=== PATIENT | female | born 1955 | race Caucasian/White ===

== ENCOUNTER 2017-05-23 13:34 | Inpatient (IN) | payer BC ==
--- NOTE | 2017-05-23 17:13 | EDPHY ---
HPI/HX/ROS/PE/MDM Narrative: CHIEF COMPLAINT: Diarrhea, abdominal pain HISTORY OF PRESENT ILLNESS: The patient is a 61 y/o female with a history of cholecystectomy and a hernia surgery complaining of severe diarrhea and abdominal pain for 5 days. A colonoscopy performed several years ago did not reveal diverticulosis. 2 weeks ago she had diarrhea for 24 hours, but continued to feel vague abdominal upset since that time. 5 days ago the severe diarrhea returned accompanied by significant abdominal pain. Mucous is present in the diarrhea, but there is no blood. She has also felt more bloated and crampy than normal. Due to the abdominal pain she has had a decreased appetite and has only eaten frozen Gatorade for 5 days. The abdominal pain is aggravated when sitting up or taking a deep breath. No fever, chills, chest pain, shortness of breath, palpitations, vomiting, urinary complaints, headache, lightheadedness. REVIEW OF SYSTEMS: Aside from elements discussed in the HPI, a comprehensive 10-point review of systems was reviewed and is negative. PAST MEDICAL HISTORY: Cholecystectomy, hernia surgery, bilateral knee replacement SOCIAL HISTORY: at bedside, lives in [place], retired VITAL SIGNS: Reviewed by me GENERAL: Well-developed, well-nourished, resting comfortably in no respiratory distress. HEENT: Atraumatic. Eyes: No icterus, no injection. Mouth: dry mucous membranes. No erythema or lesions. Neck: supple with no adenopathy. LUNGS: Clear to auscultation bilaterally, no wheezes, rhonchi or rales. CARDIAC: Regular rate and rhythm, no rubs, murmurs or gallops. ABDOMEN: Diffuse tenderness to palpation, left and lower quadrants more pronounced. Soft, nondistended, bowel sounds normal. BACK: Mild left CVA tenderness. EXTREMITIES: No trauma. No edema. Range of motion is normal throughout. NEURO: Alert and oriented, grossly nonfocal. SKIN: Warm and dry, no rash. PSYCHIATRIC: Normal mentation, no agitation. Portions of this note were transcribed by a program medical director. I personally performed a history, physical exam, medical decision making, and confirmed accuracy of information the transcribed note. ED Course: The patient is a 61 y/o female with a history of cholecystectomy and a hernia surgery presenting with diarrhea and abdominal pain. On exam she has diffuse abdominal tenderness (left and lower quadrants more pronounced), and left CVA tenderness. Labs and abdominopelvic CT ordered. 75mcg IV Fentanyl and 4mg IV Zofran administered. 0: Patient's labs are normal, imaging still pending. 1954: Spoke with Dr. Flowers, radiologist, patient has moderate diverticulitis, no micro perforations or abscess. 2015: Reassessed patient and discussed imaging and laboratory findings. Patient continues to have significant abdominal discomfort. Her pain and anorexia as providing her from eating. She is not comfortable being discharged home with oral antibiotics. I think it is reasonable to admit the patient for IV hydration as well as IV antibiotics until her symptoms are beginning to improve. 1mg IV Dilaudid, 1gm IV Ceftriaxone, 500mL Flagyl, and 1L IV NS. 2025: Consulted with Dr. Randle, hospitalist, he accepts admission of this patient. 2127: Patient is feeling itchy but there is no rash, Flagyl has been stopped. Patient received Solu-Medrol. MDM: After obtaining the patient's history and performing an examination, differential diagnosis considered included but was not limited to gastroenteritis, colitis, diverticulitis, pancreatitis, Clostridium difficile, urinary tract infections and other causes. - Data Points Imaging Results: Imaging Impressions Abdomen CT 05/23/17 17:20 Impression: 1. Moderate diverticulitis in the left pelvis of the junction of the descending and sigmoid colon. 2. Other chronic findings, as above. Results called and given to the commercial assistant for Sofiya Christian MD, on 05/23/2017, 19:58. Imaging: Discussed imaging studies w/ director call Radiologist, I viewed and interpreted images myself Laboratory Results: Laboratory Results 05/23/17 18:36 05/23/17 18:36 05/23/17 05/23/17 18:36 18:36 WBC 7.60 10^3/uL 10^3/uL (3.80-9.50) RBC 4.30 10^6/uL 10^6/uL (4.18-5.33) Hgb 13.1 g/dL g/dL (12.6-16.3) Hct 38.4 % % (38.0-47.0) MCV 89.3 fL fL (81.5-99.8) MCH 30.5 pg pg (27.9-34.1) MCHC 34.1 g/dL g/dL (32.4-36.7) RDW 14.8 % % (11.5-15.2) Plt Count 273 10^3/uL 10^3/uL (150-400) MPV 9.7 fL fL (8.7-11.7) Neut % (Auto) 52.4 % % (39.3-74.2) Lymph % (Auto) 33.4 % % (15.0-45.0) Rolette % (Auto) 11.3 % % (4.5-13.0) Eos % (Auto) 1.8 % % (0.6-7.6) Baso % (Auto) 0.8 % % (0.3-1.7) Nucleat RBC Rel Count 0.0 % % (0.0-0.2) Absolute Neuts (auto) 3.98 10^3/uL 10^3/uL (1.70-6.50) Absolute Lymphs (auto) 2.54 10^3/uL 10^3/uL (1.00-3.00) Absolute Monos (auto) 0.86 10^3/uL H 10^3/uL (0.30-0.80) Absolute Eos (auto) 0.14 10^3/uL 10^3/uL (0.03-0.40) Absolute Basos (auto) 0.06 10^3/uL 10^3/uL (0.02-0.10) Absolute Nucleated RBC 0.00 10^3/uL 10^3/uL (0-0.01) Immature Gran % 0.3 % % (0.0-1.1) Immature Gran # 0.02 10^3/uL 10^3/uL (0.00-0.10) Sodium 144 mEq/L mEq/L (135-145) Potassium 4.0 mEq/L mEq/L (3.5-5.2) Chloride 109 mEq/L mEq/L (97-110) Carbon Dioxide 23 mEq/l mEq/l (22-31) Anion Gap 12 mEq/L mEq/L (8-16) BUN 20 mg/dL mg/dL (7-23) Creatinine 0.7 mg/dL mg/dL (0.6-1.0) Estimated GFR > 60 Glucose 85 mg/dL mg/dL (70-100) Calcium 9.3 mg/dL mg/dL (8.5-10.4) Total Bilirubin 0.6 mg/dL mg/dL (0.1-1.4) Conjugated Bilirubin 0.3 mg/dL mg/dL (0.0-0.5) Unconjugated Bilirubin 0.3 mg/dL mg/dL (0.0-1.1) AST 24 IU/L IU/L (14-46) ALT 38 IU/L IU/L (9-52) Alkaline Phosphatase 53 IU/L IU/L (38-126) Total Protein 7.3 g/dL g/dL (6.3-8.2) Albumin 4.0 g/dL g/dL (3.5-5.0) Lipase 114 IU/L IU/L (23-300) Medications Given: Discontinued Medications Fentanyl (Sublimaze) 75 mcg IVP EDNOW ONE Stop: 05/23/17 17:22 Last Admin: 05/23/17 17:27 Dose: 100 mcg Hydromorphone HCl (Dilaudid) 1 mg IVP EDNOW ONE Stop: 05/23/17 20:27 Last Admin: 05/23/17 20:47 Dose: 1 mg Ceftriaxone Sodium/Dextrose (Rocephin 1 Gm (Premix)) 50 mls @ 100 mls/hr IV EDNOW ONE PRN Reason: Protocol Stop: 05/23/17 20:56 Last Admin: 05/23/17 20:45 Dose: 50 mls Metronidazole/Sodium Chloride (Flagyl 500 Mg (Premix)) 100 mls @ 100 mls/hr IV EDNOW ONE PRN Reason: Protocol Stop: 05/23/17 21:26 Last Admin: 05/23/17 20:47 Dose: 100 mls Sodium Chloride (Ns) 1,000 mls @ 0 mls/hr IV ONCE ONE; Wide Open PRN Reason: Protocol Stop: 05/23/17 20:29 Last Admin: 05/23/17 20:45 Dose: 1,000 mls Methylprednisolone Sodium Succinate (Solu-Medrol) 125 mg IVP EDNOW ONE Stop: 05/23/17 21:28 Last Admin: 05/23/17 21:43 Dose: 125 mg Ondansetron HCl (Zofran) 4 mg IVP EDNOW ONE Stop: 05/23/17 17:26 Last Admin: 05/23/17 17:27 Dose: 4 mg General Time Seen by Provider: 05/23/17 17:06 Initial Vital Signs: Initial Vital Signs Temperature (C) 36.8 C 05/23/17 14:02 Heart Rate 82 05/23/17 14:02 Respiratory Rate 17 05/23/17 14:02 Blood Pressure 132/91 H 05/23/17 14:02 O2 Sat (%) 93 05/23/17 14:02 O2 Delivery Mode Room Air Allergies/Adverse Reactions: metronidazole [From Flagyl] Allergy (Mild, Verified 05/23/17 22:23) Itching aripiprazole [From Abilify] Allergy (Verified 05/23/17 14:01) Home Medications: Medication Instructions Recorded Divalproex [Depakote 125 MG (RX)] 125 mg PO HS 09/20/15 Sertraline HCl [Zoloft 100mg (*)] 150 mg PO HS 09/20/15 Divalproex [Depakote] 500 mg PO HS 05/23/17 Herbals/Supplements -Info Only 1 ea PO DAILY 05/23/17 Lurasidone HCl [Latuda] 20 mg PO Q2D@22 05/23/17 Omeprazole 40 mg PO HS 05/23/17 Rosuvastatin Calcium [Crestor 10mg 10 mg PO HS 05/23/17 (RX)] clonazePAM [Klonopin (*)] 1 mg PO HS PRN 05/23/17 Departure - Departure Disposition: Home, Routine, Self-Care Clinical Impression: Diverticulitis Abdominal pain Qualifiers: Abdominal location: lower abdomen, unspecified Qualified Code(s): R10.30 - Lower abdominal pain, unspecified Diarrhea Qualifiers: Diarrhea type: unspecified type Qualified Code(s): R19.7 - Diarrhea, unspecified Condition: Good Report Scribed for: Sofiya Christian Report Scribed by: Annie Shukla Date of Report: 05/23/17 Time of Report: 17:10
[2017-05-23] MEDS ORDERED: fentaNYL 100 MCG/2 ML INJ IVP ONE (17:21)
[2017-05-23] MEDS ORDERED: ONDANSETRON 4 MG/2 ML VIAL ONE (17:22)
[2017-05-23] MEDS ORDERED: ONDANSETRON 4 MG/2 ML VIAL IVP ONE (17:25)
[2017-05-23 18:43] LABS: PLATELET COUNT 273 10^3/uL (150-400)
[2017-05-23] MEDS ORDERED: IOPAMIDOL (ISOVUE-300) 100 ML BTL ONE (19:28)
[2017-05-23] MEDS ORDERED: HYDROmorphONE/DILAUDID 2 MG/ML INJ IVP ONE (20:26)
[2017-05-23] MEDS ORDERED: NS 1,000 ML IV ONE (20:28)
[2017-05-23] MEDS ORDERED: ACETAMINOPHEN 325 MG TAB PO PRN (21:03)
[2017-05-23] MEDS ORDERED: ONDANSETRON DISINTEGRATING 4 MG TAB PO PRN (21:03)
[2017-05-23] MEDS ORDERED: HYDROmorphone HCL/NS 0.5 MG/ML SYR IVP PRN (21:03)
[2017-05-23] MEDS ORDERED: oxyCODONE IR 5 MG TAB PO PRN (21:03)
[2017-05-23] MEDS ORDERED: methylPREDNISolone SOD SUCC 125 MG/2 ML VIAL IVP ONE (21:27)
--- NOTE | 2017-05-23 21:31 | GHP ---
[f rep st] HISTORY AND PHYSICAL DATE OF ADMISSION: 05/23/2017 CHIEF COMPLAINT: Abdominal pain and diarrhea. HISTORY OF PRESENT ILLNESS: A 61-year-old female who presents with about 5 days of significant abdom inal pain and diarrhea. She has had trouble eating in this time period. She has had some chills at home. She has not measured her temperature. She describes a tenderness in the left lower quadrant a s severe. She has had a colonoscopy about 4 years ago which she was told was normal. Her diarrhea h as been non bloody. PAST MEDICAL/SURGICAL HISTORY: 1. Ojeda's esophagus. 2. Bipolar type 2. 3. Hyperlipidemia. 4. Hernia operation and cholecystectomy in the distant past. 5. Bilateral TKA. MEDICATIONS: Please see medication reconciliation. ALLERGIES: Abilify. FAMILY HISTORY: Significant for hyperlipidemia. SOCIAL HISTORY: She just moved here from [place]. She lives with her . She very rarely d rinks. She does not smoke. REVIEW OF SYSTEMS: A 10-point review of systems is conducted and is negative except per History of P resent Illness. PHYSICAL EXAM: VITAL SIGNS: Blood pressure 132/86, heart rate 64, respiration rate 16, saturating 9 3% on room air. Temperature is 36.8. GENERAL: Patient is a pleasant female who is resting comforta ernestina, holding her upper abdomen. HEENT: Shows to be normocephalic, atraumatic. CARDIOVASCULAR: Beena ws a regular rate and rhythm. No murmurs, rubs, or gallops. PULMONARY: Lungs clear to auscultation bilaterally. ABDOMEN: Shows her to have a normal abdomen on inspection. She has normal bowel soun ds. She is very extremely tender to palpation in the left lower quadrant. There are no peritoneal s igns. SKIN: Shows no rash. : Exam shows no Gee. NEUROLOGIC: Exam shows her to be alert and o riented x3. She is moving all extremities. PSYCHIATRIC: Exam shows normal mood and affect. LABORATORY DATA: CBC is normal. Basic metabolic panel is normal. LFTs are normal. DATA: I discussed this with Dr. Christian. Will admit to med/surg. Abdominal CT scan shows moderate sigmoid diverticulitis. IMPRESSION AND PLAN: 1. Diverticulitis: No evidence of perforation at this time. She is quite tender to palpation. Adrien l treat her with Rocephin and Flagyl. If she decompensates at all, will have a low threshold to invo lve General Surgery. Giving her clear liquids. Will give her some IV fluids. 2. Bipolar type 2: Will continue her Depakote and Latuda. 3. Hyperlipidemia: Crestor. 4. Ojeda's: She is on omeprazole. 5. Venous thromboembolism risk is moderate. I will give her Lovenox. 6. Code Status: Will make her full code. /[id number]/MODL
[2017-05-23] MEDS ORDERED: LURASIDONE HCL 20 MG TAB PO SCH (22:00)
[2017-05-24] MEDS: NS 1,000 ML IV SCH ×3 (00:14→23:03)
[2017-05-24] MEDS: ROSUVASTATIN CALCIUM 10 MG TAB PO SCH ×2 (00:41→20:13)
[2017-05-24] MEDS: PANTOPRAZOLE SODIUM 40 MG TAB PO SCH ×2 (00:41→20:13)
[2017-05-24] MEDS: DIVALPROEX NA 125 MG TAB PO SCH ×2 (00:41→20:13)
[2017-05-24] MEDS: DIVALPROEX NA 500 MG TAB PO SCH ×2 (00:41→20:13)
[2017-05-24] MEDS: clonazePAM 1 MG TAB PO PRN ×2 (00:44→20:20)
[2017-05-24] MEDS ORDERED: SERTRALINE HCL 100 MG TAB PO SCH ×2 (01:05→21:00)
--- NOTE | 2017-05-24 01:05 | HOSPPROG ---
Hospitalist Progress Note Assessment/Plan: XC: Patient had allergic reaction (severe, diffuse itching) to Flagyl. Will d/c CTX/Flagyl and change to Invanz for treatment of diverticulitis. Objective: Vital Signs Temp Pulse Resp BP Pulse Ox 36.9 C 72 18 157/72 H 94 05/24/17 00:36 05/24/17 00:36 05/24/17 00:36 05/24/17 00:36 05/24/17 00:36 ICD10 Worksheet Patient Problems: Problems Problem Status Onset Diverticulitis Acute
[2017-05-24 05:18] LABS: PLATELET COUNT 295 10^3/uL (150-400)
[2017-05-24] MEDS ORDERED: SUMAtriptan 5 MG/SPRAY SPRAY NS ONE (06:19)
[2017-05-24] MEDS: ONDANSETRON 4 MG/2 ML VIAL IVP PRN (09:20)
[2017-05-24] MEDS: ERTAPENEM 1 GM VIAL IV SCH (10:20)
[2017-05-24] MEDS: ENOXAPARIN 40 MG/0.4 ML SYR SC SCH (10:22)
--- NOTE | 2017-05-24 14:23 | HOSPPROG ---
Hospitalist Progress Note Assessment/Plan: 61 yo F admitted with desc and sigmoid colon diverticulitis # acute uncomplicated diverticulitis: of descending and sigmoid colon on peronal evaluation of abdominal CT. STarted on ctx/flagyl but allergic response to flagyl and now on invanz. Pain slightly improved but still not tolerating diet. Will likely advance diet in am and transition to oral abx # bioplar 2: at baseline, continue depakote, latuda # HLD: continue crestor #Barretts esophagus: PPI # IP status Patient new to my care. Old records reviwed and summarized as above. Care planr eviewed with pateints at bedside. Subjective: continued abdominal pain, no appetitie, tolerating minimal clears Objective: Vital Signs Temp Pulse Resp BP Pulse Ox 36.6 C 55 L 16 106/73 92 05/24/17 11:19 05/24/17 11:19 05/24/17 11:19 05/24/17 11:19 05/24/17 11:19 Laboratory Results 05/24/17 04:46 05/24/17 04:46 05/23/17 05/24/17 05/25/17 05:59 05:59 05:59 Intake Total 200 573 Balance 200 573 awake alert uncomfortable anicteric op clear rrr no mrg cta b soft dec bs no cce warm dry well perfused oriented approprate - Time Spent With Patient Time Spent with Patient: greater than 35 minutes Time Spent with Patient: Greater than 35 minutes spent on this patients care, greater than 50% of time spent counseling, educating, and coordinating care regarding the above mentioned plan. ICD10 Worksheet Patient Problems: Problems Problem Status Onset Diverticulitis Acute Abdominal pain Acute Diarrhea Acute
[2017-05-25 07:35] VITALS: O2SAT 92
[2017-05-25] MEDS: ERTAPENEM 1 GM VIAL IV SCH (09:02)
[2017-05-25] MEDS: ENOXAPARIN 40 MG/0.4 ML SYR SC SCH (09:02)
[2017-05-25] MEDS: ONDANSETRON 4 MG/2 ML VIAL IVP PRN (09:08)
--- NOTE | 2017-05-25 09:13 | PDMN ---
Medical Necessity Medical necessity: M150 diverticulitis- acute A-2 days : persistent abd pain., allergic rxn to flagyl now on Invanz, not tolerating diet, ongoing med nec care > 2 midnights, IV abx, pain, antiemetics, fluids
--- NOTE | 2017-05-25 12:12 | ASMTCASEMG ---
Living Arrangements What is your living Answers: With Spouse arrangement? Who do you live with? Type Of Residence What kind of residence do Answers: House you live in? Discharge Plan Comments Coordination Status Comments Notes: Patient is a 61yo female who comes to [facility] ED after 5 days of significant abdominal pain and diarrhea. Patient was admitted for observation of diverticulitis. Patient has a hx of Bipolar Type 2, Hyperlipidemia, and Ojeda's. No therapies have been ordered currently. Patient lives in [place] with her . Patient has been made inpatient status as of this morning. D/C plan TBD. CM will follow. Date Signed: 05/25/2017 12:11 PM Electronically Signed By:Arabella Hastings LCSW
[2017-05-25] MEDS ORDERED: AMOXICILLIN/CLAVULANATE POT 875/125 MG TAB PO SCH ×2 (12:45→21:00)
--- NOTE | 2017-05-25 12:47 | HOSPPROG ---
Hospitalist Progress Note Assessment/Plan: 61 yo F admitted with desc and sigmoid colon diverticulitis # acute uncomplicated diverticulitis: of descending and sigmoid colon on peronal evaluation of abdominal CT. STarted on ctx/flagyl but allergic response to flagyl and transitioned to invanz. Today she is tolerating some PO, but still not ready to advance diet. Will transition to augmentin given flagyl allergy and plan to complete a full course of abx. # bioplar 2: at baseline, continue depakote, latuda # HLD: continue crestor #Barretts esophagus: PPI # IP status Patient new to my care. Old records reviewed and summarized as above. Care plan reviewed with patients at bedside. Subjective: no significant overnight events, patient feeling a bit better but still not tolerating diet and still with significant pain Objective: Vital Signs Temp Pulse Resp BP Pulse Ox 36.7 C 74 16 121/98 H 92 05/25/17 07:31 05/25/17 07:31 05/25/17 07:31 05/25/17 07:31 05/25/17 07:31 05/24/17 05/25/17 05/26/17 05:59 05:59 05:59 Intake Total 600 Balance 600 awake alert uncomfortable anicteric op clear rrr no mrg cta b soft dec bs no cce warm dry well perfused oriented approprate - Time Spent With Patient Time Spent with Patient: greater than 35 minutes Time Spent with Patient: Greater than 35 minutes spent on this patients care, greater than 50% of time spent counseling, educating, and coordinating care regarding the above mentioned plan. ICD10 Worksheet Patient Problems: Problems Problem Status Onset Abdominal pain Acute Diarrhea Acute Diverticulitis Acute
[2017-05-25 15:57] VITALS: BP 142/74; PULSE 67; RESP 18; TEMP 98.2
--- NOTE | 2017-05-25 17:52 | PDDCSUM ---
Discharge Summary Discharge Summary: Dates of service 05/23-05/25/17 Consultations: none Procedures: abd ct Hospital course by problem: # acute uncomplicated diverticulitis: of descending and sigmoid colon on peronal evaluation of abdominal CT. STarted on ctx/flagyl but allergic response to flagyl and transitioned to invanz. Able to tolerate diet further by the end of the day, transitioned to augmentin for discharge. # bioplar 2: at baseline, continue depakote, latuda # HLD: continue crestor #Barretts esophagus: PPI # IP status DC home f/u wit PCP > 35 min spent in dc of patient more than half in coordination of care
== END 2017-05-25 18:41 | disposition home or self-care (01) | DRG 392 ==
LOC: F3E 23:00 → OBSVTOIN 05-24 21:15
PROVIDERS: ADMIT Student in an Organized Health Care Education/Training Program; ATTEND Internal Medicine
DX: K57.32 Diverticulitis of large intestine without perforation or abscess without bleeding (principal); T37.3X5A Adverse effect of other antiprotozoal drugs, initial encounter; L29.8 Other pruritus; F31.81 Bipolar II disorder; E78.5 Hyperlipidemia, unspecified; K22.70 Barrett's esophagus without dysplasia; Z90.49 Acquired absence of other specified parts of digestive tract; Z96.653 Presence of artificial knee joint, bilateral
CPT/HCPCS: 96374; G0378; J0696; J1170; J1335; J1650; J2405; J2930; J3010; Q9967

== ENCOUNTER 2018-01-25 12:50 | Inpatient (IN) | payer BC ==
[2018-01-25] MEDS ORDERED: IOPAMIDOL (ISOVUE-300) 100 ML BTL ONE (13:16)
[2018-01-25] MEDS ORDERED: HYDROmorphONE/DILAUDID 1 MG/ML INJ IVP PRN (16:58)
[2018-01-25] MEDS: HYDROmorphONE/DILAUDID 2 MG/ML INJ IVP PRN ×2 (17:29→20:51)
[2018-01-25] MEDS: ONDANSETRON 4 MG/2 ML VIAL IVP PRN (17:34)
--- NOTE | 2018-01-25 17:35 | GHP ---
DATE OF ADMISSION: 01/25/2018 CHIEF COMPLAINT: Abdominal pain. HISTORY OF PRESENT ILLNESS: The patient is a 62-year-old female with her third recurrence of diverticulitis of the sigmoid colon that started approximately 2-1 /2 weeks ago. In the past, she has been treated with oral or iv antibiotics. Currently, the patient complains of left lower quadrant pain. She saw her PCP, Dr. Hussein, last week who placed her on oral antibiotics. Her pain has continued to get worse and she is now febrile. She had a CT abdomen and pelvis today that revealed extensive sigmoid diverticulitis with a 2 cm submucosal abscess within the proximal sigmoid colon at the site of prior acute diverticulitis. The patient reports that her abdomen constantly feels full as if she has had a large meal. She does not have much of an appetite. She is having diarrhea. She denies nausea and vomiting. PAST MEDICAL HISTORY: Ojeda esophagus, bipolar disorder with depression, diverticulitis, hyperlipidemia, insomnia, migraine, chronic lymphocytic leukemia. PAST SURGICAL HISTORY: Bilateral total knee arthroplasties, as well as hernia repair and cholecystectomy 20 years ago. MEDICATIONS: Augmentin 875/125 mg, Crestor 40 mg, Depakote 125 mg, Excedrin Migraine as needed, Klonopin 0.5 mg, Prilosec 40 mg, Ultram 50 mg, Zoloft 100 mg. ALLERGIES: Flagyl and Abilify. FAMILY MEDICAL HISTORY: Cardiovascular disease. SOCIAL HISTORY: Patient is a nonsmoker. REVIEW OF SYSTEMS: A 10-point review of systems performed is negative, aside from what is in the HPI. PHYSICAL EXAM: GENERAL: This is a 62-year-old female who is somewhat ill- appearing, but in no acute distress, resting on exam table. HEENT: Pupils equal and round. No scleral icterus. Head: Normocephalic, atraumatic. No gross hearing deficits. Mucous membranes are moist. CARDIAC: Regular rate and rhythm. No clicks, murmurs, or rubs. RESPIRATORY: Clear to auscultation bilaterally. No increased work of breathing. ABDOMEN: Soft, slightly distended, tender to palpation in the left lower quadrant. Hyperactive bowel sounds present. SKIN: Warm and dry. No rashes. No jaundice. MUSCULOSKELETAL : Moves all extremities equally. No peripheral edema. NEUROLOGIC: She is alert and oriented x4. PSYCHIATRIC: Appropriate mood and affect. ASSESSMENT/PLAN: This is a 62-year-old female with her third recurrent episode of diverticulitis. She now has an abscess in the proximal sigmoid colon. We plan to admit her for intravenous antibiotics, hydration, and bowel rest. We will see if she is a candidate for percutaneous drainage of the diverticular abscess. I did discuss with the patient that she may need surgery to have this diseased portion of her colon out. If this has to happen more urgently should the antibiotics not decrease the abscess, she will need a temporary colostomy. Hopefully, the intravenous antibiotics will treat the abscess and we will plan for sigmoid colectomy down the road as an outpatient. We discussed all risks and options and patient wishes to move forward with this plan. Dr. Ross will see the patient later this evening. /[id number]/MODL MTDD
[2018-01-25] MEDS: ERTAPENEM 1 GM in NS 100 ML IV SCH (17:36)
[2018-01-25] MEDS: D5W 1/2 NS W/ 20 KCl/L 1,000 ML IV SCH (17:36)
[2018-01-25 17:45] LABS: PLATELET COUNT 213 10^3/uL (150-400)
[2018-01-25] MEDS: ACETAMINOPHEN 500 MG TAB PO PRN (23:48)
--- NOTE | 2018-01-26 00:27 | PDHOSCONS ---
History and Physical - Chief Complaint Abdominal pain - History of Present Illness 62 yo F w/ hx of diverticulitis, bipolar disorder, HLD, migraine, and per her report recently diagnosed CLL presents with recurrent diverticulitis. The patient was directly admitted to surgical service and the hospital medicine service was consulted for medication management. The patient presented to PCP with abdominal pain and was placed on oral Augmentin. CT scan revealed recurrent diverticulitis with small abscess so she was admitted here for management. She has been placed on IV Ertapenem by the surgical service. She is asking for her nighttime meds. Case discussed with surgeon Dr. Ross; records reviewed and summarized above. History Information - Allergies/Home Medication List Allergies/Adverse Reactions: metronidazole [From Flagyl] Allergy (Mild, Verified 05/23/17 22:23) Itching lamotrigine [From Lamictal] Allergy (Verified 01/25/18 18:47) Home Medications: Divalproex [Depakote] 125 mg PO HS 09/20/15 [Last Taken 01/24/18] Sertraline HCl [Zoloft 100mg (*)] 150 mg PO HS 09/20/15 [Last Taken 01/24/18] Divalproex [Depakote] 500 mg PO HS 05/23/17 [Last Taken 01/24/18] Lurasidone HCl [Latuda] 20 mg PO Q2D@22 05/23/17 [Last Taken 01/24/18] Omeprazole 40 mg PO HS 05/23/17 [Last Taken 01/24/18] clonazePAM [Klonopin (*)] 1 mg PO HS PRN 05/23/17 [Last Taken 01/24/18] Rosuvastatin Calcium [Crestor 20mg (*)] 20 mg PO HS 01/25/18 [Last Taken ] I have personally reviewed and updated: family history, medical history - Past Medical History migraines Additional medical history: Bipolar disorder. CLL. Recurrent diverticulitis - Surgical History Reports: cholecystectomy, hernia repair Additional surgical history: Bilateral TKAs - Family History Positive for: CAD - Social History Smoking Status: Never smoked Review of Systems Review of Systems: ROS: 10pt was reviewed & negative except for what was stated in HPI & below Physical Exam Physical Exam: Temp Pulse Resp BP Pulse Ox 36.9 C 75 16 107/56 L 96 01/25/18 19:31 01/25/18 19:31 01/25/18 19:44 01/25/18 19:31 01/25/18 19:44 O2 (L/minute) 2 Constitutional: obese, uncomfortable Eyes: PERRL, EOMI Ears, Nose, Mouth, Throat: moist mucous membranes, no oral mucosal ulcers Cardiovascular: regular rate and rhythym, no murmur, rub, or gallop Respiratory: no respiratory distress, clear to auscultation Gastrointestinal: normoactive bowel sounds, tenderness (LLQ), No guarding, No rebound, No distension Skin: warm, normal color Musculoskeletal: full muscle strength, no muscle tenderness Neurologic: AAOx3, CN II-XII Intact Psychiatric: interacting appropriately, not anxious Lab Data & Imaging Review 01/25/18 17:25 01/25/18 17:25 WBC 7.87 10^3/uL (3.80-9.50) 01/25/18 17:25 RBC 4.18 10^6/uL (4.18-5.33) 01/25/18 17:25 Hgb 12.4 g/dL (12.6-16.3) L 01/25/18 17:25 Hct 36.2 % (38.0-47.0) L 01/25/18 17:25 MCV 86.6 fL (81.5-99.8) 01/25/18 17:25 MCH 29.7 pg (27.9-34.1) 01/25/18 17:25 MCHC 34.3 g/dL (32.4-36.7) 01/25/18 17:25 RDW 14.8 % (11.5-15.2) 01/25/18 17:25 Plt Count 213 10^3/uL (150-400) 01/25/18 17:25 MPV 9.9 fL (8.7-11.7) 01/25/18 17:25 Neut % (Auto) Not Reported 01/25/18 17:25 Lymph % (Auto) Not Reported 01/25/18 17:25 [place] % (Auto) Not Reported 01/25/18 17:25 Eos % (Auto) Not Reported 01/25/18 17:25 Baso % (Auto) Not Reported 01/25/18 17:25 Nucleat RBC Rel Count Not Reported 01/25/18 17:25 Absolute Neuts (auto) Not Reported 01/25/18 17:25 Absolute Lymphs (auto) Not Reported 01/25/18 17:25 Absolute Monos (auto) Not Reported 01/25/18 17:25 Absolute Eos (auto) Not Reported 01/25/18 17:25 Absolute Basos (auto) Not Reported 01/25/18 17:25 Absolute Nucleated RBC Not Reported 01/25/18 17:25 Immature Gran % Not Reported 01/25/18 17:25 Seg Neutrophils % 12.0 % 01/25/18 17:25 Band Neutrophils % 2.0 % 01/25/18 17:25 Lymphocytes % 76.0 % 01/25/18 17:25 Monocytes % 9.0 % 01/25/18 17:25 Eosinophils % 1.0 % 01/25/18 17:25 Basophils % 0.0 % 01/25/18 17:25 Metamyelocytes % 0.0 % 01/25/18 17:25 Myelocytes % 0.0 % 01/25/18 17:25 Promyelocytes % 0.0 % 01/25/18 17:25 Blast Cells % 0.0 % 01/25/18 17:25 Immature Gran # Not Reported 01/25/18 17:25 Absolute Seg Neuts 0.94 10^3/uL (1.70-6.50) L 01/25/18 17:25 Absolute Band Neuts 0.16 10^3/uL (0.00-0.70) 01/25/18 17:25 Absolute Lymphocytes 5.98 10^3/uL (1.00-3.00) H 01/25/18 17:25 Absolute Monocytes 0.71 10^3/uL (0.30-0.80) 01/25/18 17:25 Absolute Eosinophils 0.08 10^3/uL (0.03-0.40) 01/25/18 17:25 Absolute Basophils 0.00 10^3/uL (0.02-0.10) L 01/25/18 17:25 Absolute Metamyelocyte 0.00 10^3/mL (0.00-0.00) 01/25/18 17:25 Absolute Myelocytes 0.00 10^3/mL (0.00-0.00) 01/25/18 17:25 Absolute Promyelocytes 0.00 10^3/uL (0.00-0.00) 01/25/18 17:25 Absolute Plasma Cells 0.00 10^3/uL (0.00-0.00) 01/25/18 17:25 Atypical Lymphocytes 2+ H 01/25/18 17:25 Absolute Blast Cells 0.00 10^3/uL (0.00-0.00) 01/25/18 17:25 Plasma Cells % 0.0 % 01/25/18 17:25 Platelet Estimate ADEQUATE (ADEQ) 01/25/18 17:25 Sodium 136 mEq/L (135-145) 01/25/18 17:25 Potassium 3.7 mEq/L (3.3-5.0) 01/25/18 17:25 Chloride 102 mEq/L (97-110) 01/25/18 17:25 Carbon Dioxide 24 mEq/l (22-31) 01/25/18 17:25 Anion Gap 10 mEq/L (6-14) 01/25/18 17:25 BUN 11 mg/dL (7-23) 01/25/18 17:25 Creatinine 0.7 mg/dL (0.6-1.0) 01/25/18 17:25 Estimated GFR > 60 01/25/18 17:25 Glucose 97 mg/dL (70-100) 01/25/18 17:25 Calcium 9.1 mg/dL (8.5-10.4) 01/25/18 17:25 Total Bilirubin 0.5 mg/dL (0.1-1.4) 01/25/18 17:25 AST 44 IU/L (14-46) 01/25/18 17:25 ALT 45 IU/L (9-52) 01/25/18 17:25 Alkaline Phosphatase 62 IU/L (38-126) 01/25/18 17:25 Total Protein 7.3 g/dL (6.3-8.2) 01/25/18 17:25 Albumin 3.9 g/dL (3.5-5.0) 01/25/18 17:25 Imaging Review: Imaging Impressions Abdomen CT 01/25/18 12:55 Impression: Extensive sigmoid diverticulosis, with a 2.0-cm submucosal abscess within the proximal sigmoid colon at the site of prior acute diverticulitis. Results called to Dr. Micah Hussein at 3:25 p.m. Assessment & Plan Assessment: 62 yo F presents with recurrent diverticulitis. Plan: 1. Complicated diverticulitis, recurrent - CT scan (personally reviewed/ interpreted) reveals 2 cm abscess. The patient is tender in the LLQ but her abdominal exam is overall reassuring. She is currently not displaying sepsis physiology. - Surgical service managing - On Ertapenem IV 2. Bipolar disorder - Will continue home Depakote, Zoloft, and Latuda q2d. 3. HLD - Continue statin 4. Migraines - Will manage with APAP 1 g PRN for now. Thank you for this consult, the hospital medicine service will follow along with you.
[2018-01-26] MEDS: ROSUVASTATIN CALCIUM 20 MG TAB PO SCH ×2 (00:40→21:55)
[2018-01-26] MEDS: ONDANSETRON 4 MG/2 ML VIAL IVP PRN ×2 (00:40→15:57)
[2018-01-26] MEDS: DIVALPROEX NA 500 MG TAB PO SCH ×2 (00:40→20:51)
[2018-01-26] MEDS: DIVALPROEX NA 125 MG TAB PO SCH ×2 (00:40→20:50)
[2018-01-26] MEDS: SERTRALINE HCL 100 MG TAB PO SCH ×2 (00:41→21:55)
[2018-01-26] MEDS: clonazePAM 0.5 MG TAB PO PRN ×2 (00:41→21:55)
[2018-01-26] MEDS ORDERED: PROMETHAZINE HCL 25 MG/ML INJ IVP PRN (01:15)
[2018-01-26] MEDS: D5W 1/2 NS W/ 20 KCl/L 1,000 ML IV SCH ×2 (04:21→15:59)
--- NOTE | 2018-01-26 06:03 | PDMN ---
Medical Necessity Medical necessity: Pt meets inpt criteria per MD order and MCG M-150, Diverticulitis, Acute, A-2 days. 62 y/o w/hx recurrent diverticulitis presenting w/LLQ pain and abd distension. Imaging shows extensive sigmoid diverticuitis now w/2 cm submucosal abscess in proximal sigmoid colon. IV ABX's , hydration, bowel rest, IV Dilaudid for pain, possible percutaneous drainage of abscess or surgery. Est LOS>2MN for ongoing eval/management of above.
[2018-01-26] MEDS: ACETAMINOPHEN 500 MG TAB PO PRN (06:16)
--- NOTE | 2018-01-26 09:28 | SOAPPROG ---
SOAP Progress Note Assessment/Plan: Assessment/Plan: 62 Y F diverticulitis c submucosal abscess. Seen with Dr. Ross and RN. Pain improved. Afebrile. WBCs normal (on admit). Continue IV abx. Ok to start clears--patient told to go slow with this. If continues to improve could avoid urgent surgery. Would still recommend eventual sigmoid colectomy. Dispo: pending course. S: less pain. no diarrhea. no fever, chills. O: alert, nad, smiling no wob abd soft, +llq tenderness 01/26/18 09:25 Objective: Vital Signs Temp Pulse Resp BP Pulse Ox 36.6 C 91 18 130/76 H 95 01/26/18 04:30 01/26/18 04:30 01/26/18 04:30 01/26/18 04:30 01/26/18 04:30 Laboratory Results 01/25/18 17:25 01/25/18 17:25 01/25/18 01/26/18 01/27/18 05:59 05:59 05:59 Intake Total 150 Output Total 350 Balance -200 ICD10 Worksheet Patient Problems: Problems Problem Status Onset Abdominal pain Acute Diarrhea Acute Diverticulitis Acute
--- NOTE | 2018-01-26 10:05 | ASMTCMCOM ---
CM Note CM Note Notes: Chart reviewed. Per surgery, emergent surgery may be avoidable . Patient is a 62 year old female admitted via ED with abdominal pain, per CT she has a diverticulitis abscess WBC normal. On ANTB. Normally lives independent with her . CM to follow for needs. Plan: TBD Date Signed: 01/26/2018 10:04 AM Electronically Signed By:Rosario Amor RN
[2018-01-26] MEDS ORDERED: ACET/CAFFEINE/BUTA FIORICET 1 EACH TAB PO PRN (10:54)
[2018-01-26] MEDS ORDERED: LORazepam 2 MG/ML INJ IVP PRN (15:32)
[2018-01-26] MEDS: HYDROmorphONE/DILAUDID 2 MG/ML INJ IVP PRN (15:39)
--- NOTE | 2018-01-26 16:00 | HOSPPROG ---
Hospitalist Progress Note Assessment/Plan: * Diverticulitis with abscess -recurrent sigmoid disease - will need eventual sigmoid resection but attempt medical therapy acutely -IV invanz -evaluate for possible IR drainage of abscess -if surgery needed, she requests transfer to [facility] Dr. Sanchez * Bipolar -home meds - depakote, zoloft, latuda * Migraine -better with caffeine this am * Hyperlipidemia -statin Subjective: Not tolerating clears very well, still with significant pain Objective: Vital Signs Temp Pulse Resp BP Pulse Ox 36.7 C 63 16 113/68 93 01/26/18 14:48 01/26/18 14:48 01/26/18 14:48 01/26/18 14:48 01/26/18 14:48 Laboratory Results 01/25/18 17:25 01/25/18 17:25 01/25/18 01/26/18 01/27/18 05:59 05:59 05:59 Intake Total 150 Output Total 350 Balance -200 IV dilaudid for pain CT reviewed - 2cm submucosal abscess - Physical Exam Constitutional: no apparent distress, appears nourished, not in pain Cardiovascular: regular rate and rhythym, no murmur, rub, or gallop Respiratory: no respiratory distress, no rales or rhonchi, clear to auscultation Gastrointestinal: tenderness (severe RLQ), No ascites, No guarding, No rebound, No distension Skin: no rashes or abrasions, no fluctuance, no induration Neurologic: AAOx3, sensation intact bilaterally Psychiatric: interacting appropriately, not anxious, not encephalopathic, thought process linear ICD10 Worksheet Patient Problems: Problems Problem Status Onset Abdominal pain Acute Diarrhea Acute Diverticulitis Acute
[2018-01-26] MEDS: ERTAPENEM 1 GM in NS 100 ML IV SCH (17:45)
[2018-01-26] MEDS ORDERED: LURASIDONE HCL 20 MG TAB PO SCH (22:00)
[2018-01-27] MEDS: CALCIUM CARBONATE 500 MG CHEWABLE TAB PO PRN ×2 (02:25→09:05)
[2018-01-27] MEDS: D5W 1/2 NS W/ 20 KCl/L 1,000 ML IV SCH (02:31)
[2018-01-27 04:46] LABS: PLATELET COUNT 219 10^3/uL (150-400)
[2018-01-27] MEDS ORDERED: FAMOTIDINE 20 MG/NACL 50 ML IV SCH (09:00)
[2018-01-27] MEDS ORDERED: ENOXAPARIN 40 MG/0.4 ML SYR SC SCH (09:00)
--- NOTE | 2018-01-27 11:13 | SOAPPROG ---
SOAP Progress Note Assessment/Plan: Assessment/Plan: 62 Y F diverticulitis c submucosal abscess. Seen with Dr. Ross and RN, discussed with ID and medicine. Pain is worse. WBCs still ok, still afebrile. Some question regarding possible ovarian cyst (?). If surgery necessary patient requests a specific surgeon at the [place]. Given her level of pain, recommend transfer per her request. Surgery not imminent, but becoming more likely. Added pepcid. NPO. S: more pain. lots of heartburn. O: alert, appears anxious ctab rrr abd +LLQ pain c guarding 01/27/18 11:09 Objective: Vital Signs Temp Pulse Resp BP Pulse Ox 36.9 C 83 16 130/94 H 90 L 01/27/18 08:35 01/27/18 08:35 01/27/18 08:35 01/27/18 08:35 01/27/18 08:35 Laboratory Results 01/27/18 04:23 01/25/18 17:25 01/26/18 01/27/18 01/28/18 05:59 05:59 05:59 Intake Total 150 1589 Output Total 350 150 Balance -200 1589 -150 ICD10 Worksheet Patient Problems: Problems Problem Status Onset Abdominal pain Acute Diarrhea Acute Diverticulitis Acute
[2018-01-27] MEDS: ACETAMINOPHEN 500 MG TAB PO PRN (11:35)
[2018-01-27] MEDS: ONDANSETRON 4 MG/2 ML VIAL IVP PRN (11:36)
[2018-01-27 12:10] VITALS: BP 108/70
--- NOTE | 2018-01-27 12:11 | GCON ---
INFECTIOUS DISEASE CONSULTATION DATE OF CONSULTATION: 01/27/2018 REFERRING PHYSICIAN: Sherrie Trent MD REASON FOR CONSULTATION: Diverticular abscess. HISTORY OF PRESENT ILLNESS: The patient is a 62-year-old female with a past medical history of diver ticulitis and recent diagnosis of CLL who I am asked to see in consultation for recurrent diverticuli tis and diverticular abscess. Patient first developed diverticulitis in May of this year, at which point in time she was treated with antibiotic therapy with resolution of symptoms. She was hospital ized briefly at time of onset in May with initial treatment consisting of ceftriaxone and metronida zole with subsequent transition to ertapenem based on allergic reaction to metronidazole. At the anna e of discharge, she was transitioned to Augmentin and had good clinical response. In August, she exper ienced recurrent left lower quadrant pain consistent with recurrent diverticulitis. She received lizett atment for 14 days with Augmentin and again experienced resolution of symptoms. Earlier this month, the patient developed recurrent left lower quadrant pain and diarrhea. She notes diarrhea is watery and can occur 5 to 10 times per day. There is no admixed blood or mucus. Her initial evaluation by her primary care provider noted that she was having fevers as high as 101.6. She was started on 01/07, on Augmentin. In followup, she was noted to be improving on Augmentin with persistent diarrh ea. Additional followup on 01/25/2018, noted that she had persisting and worsening abdominal pain ultimat j[place] prompting CT scan and hospital admission. CT scan of the abdomen and pelvis from 01/25/2018, gita wed evidence of diverticulosis affecting the sigmoid colon with a 2 cm submucosal abscess in the prox imal sigmoid colon. CT scan in May revealed a 2 cm cyst in the left ovary. I have reviewed both o f these images today with the feeling being that the current finding described as submucosal abscess is most compatible with ovarian cyst and relatively unchanged versus prior CT in May. There is no surrounding inflammatory stranding. Patient has been treated empirically with ertapenem and recommen ded that she ultimately have sigmoid resection based on the recurrent nature of her diverticulitis. She has not noted any improvement in her left lower quadrant pain. She continues to have watery diar ayana with poor appetite and nausea. She has requested transfer to the [facility]. Given the above findings, I am now asked to assist in her ongoing managemen t. PAST MEDICAL HISTORY: Recurrent diverticulitis, recent diagnosis of CLL, bipolar disorder. PAST SURGICAL HISTORY: Bilateral knee replacement, cholecystectomy. CURRENT MEDICATIONS: Ertapenem 1 g IV daily, Depakote 625 mg p.o. q.h.s., Lovenox 40 mg subcu daily, Pepcid 20 mg IV q.12 hours, Latuda 20 mg every other day, Crestor 20 mg p.o. q.h.s., Zoloft 150 mg p .o. q.h.s. ALLERGIES: Metronidazole associated with diffuse rash, Lamictal. SOCIAL HISTORY: Patient does not smoke. She does not drink alcohol. Occasional marijuana use. No pets at home. No recent travel. FAMILY HISTORY: Coronary artery disease, appendiceal cancer, COPD. REVIEW OF SYSTEMS: Outside that noted in the HPI, the remainder of 10 system review is unremarkable. PHYSICAL EXAMINATION: VITAL SIGNS: Temperature 36.9, heart rate 83, respiratory rate 16, blood pres sure 130/94, oxygen saturation 90% on room air. GENERAL: Patient is an obese female in no acute dis tress. She appears nontoxic. HEENT: There is no scleral icterus, conjunctival injection, or conjun ctival petechiae. Oropharynx shows moist mucous membranes. No thrush noted. No nasal discharge. N o sinus tenderness. NECK: Supple without palpable lymphadenopathy or thyromegaly. CHEST: Clear to auscultation bilaterally without adventitious sounds. The respiratory effort is normal. CARDIOVASC ULAR: Regular rate and rhythm without murmurs, gallops, or rubs. ABDOMEN: Soft, tender in the left lower quadrant. Bowel sounds are present. No peritoneal signs present. No palpable organomegaly. MUSCULOSKELETAL: No cyanosis, clubbing, or edema. Well-healed scars over both knees. NEUROLOGIC: Patient is alert and interacts appropriately with examiner. Cranial nerves 2-12 are grossly intact. Sensation is grossly intact. Muscle tone and bulk are normal. LYMPHATICS: No cervical or supracl avicular nodes. SKIN: No rashes present. No stigmata of endocarditis. Skin is warm and dry to [facility]. LABORATORY/IMAGING: White blood cell count 6.2, hematocrit 36.8, platelets 219, neutrophils 29%, lym phocytes 60%, 2+ atypical lymphocytes. Serum creatinine 0.7. AST 44, ALT 45, bilirubin 0.5, alkalin e phosphatase 62, albumin 3.9. C difficile toxin is pending. CT scan of the abdomen and pelvis from May and from current admission are reviewed by me with [employer] today: Extensive diverticulosis present in the sigmoid colon; 2 cm hypodense area in the left l ower quadrant, which is felt most compatible on review of reformatted images to be compatible with ov roberta cyst, rather than submucosal abscess. IMPRESSION: Left lower quadrant pain with history of recurrent diverticulitis: Pain concerning for recurrent diverticulitis, although CT scan shows changes most compatible with diverticulosis and on r e-evaluation of CT scan, fluid collection may represent ovarian cyst, rather than diverticular absces s. Given recent antibiotic exposure, Clostridium difficile colitis does need to be ruled out as this could also contribute to similar symptomatology. Lack of fever currently and normal white blood rivera l count are atypical for diverticular abscess. This is complicated, however, by previous antibiotic exposure and underlying chronic lymphocytic leukemia. Given lack of response to antibiotic therapy, consideration for interval repeat CT imaging of consideration to see if there has been any evolution of new findings. Patient is desiring transfer to [facility] for second opinion, which is being facilitated by hospital service currently. CT findings, including consideration that ovarian cyst, rather than abscess is present radiographically were discussed with patient and today. RECOMMENDATIONS: 1. Await C difficile PCR. 2. Continue ertapenem in interim. 3. Consider repeat CT scan of abdomen and pelvis to further evaluate if patient remains hospitalized at [facility]. 4. If C diff negative, would obtain full GI pathogen panel by PCR testing to ensure no other etiolog y for diarrhea present. 5. Continue ertapenem in interim pending additional evaluation. Thank you for this consultation. /[id number]/MODL
--- NOTE | 2018-01-27 14:50 | HOSPPROG ---
Hospitalist Progress Note Assessment/Plan: * LLQ pain of unclear etiology -initially thought to be recurrent diverticulitis with abscess -however further review of CT with Dr. Pepe ID - minimal inflammation, just extensive diverticulosis -comparison with previous CT reveals that "abscess" is actually pre-existing cyst on ovary -continue IV invanz for now -no emergent surgical need at this time -only 1 confirmed previous diverticulitis episode June 2017, all other recurrent episodes treated empirically -transfer to [facility] per patient request for 2nd surgical opinion * Diarrhea -Cdiff negative, extensive recent antibiotic exposure * Report of fever by patient -no fever documented here * CLL - recently diagnosed -has not yet seen heme/onc * Bipolar -home meds - depakote, zoloft, latuda * Migraine -better with caffeine * Hyperlipidemia -statin Subjective: Still with LLQ pain today Objective: Vital Signs Temp Pulse Resp BP Pulse Ox 37.4 C 76 16 108/70 90 L 01/27/18 12:00 01/27/18 12:00 01/27/18 12:00 01/27/18 12:00 01/27/18 12:00 Laboratory Results 01/27/18 04:23 01/25/18 17:25 01/26/18 01/27/18 01/28/18 05:59 05:59 05:59 Intake Total 150 1589 Output Total 350 150 Balance -200 1589 -150 d/w Dr. Ross and Dr. Pepe - transfer to [facility] per patient request AXR - no free air - Physical Exam Constitutional: no apparent distress, appears nourished, not in pain Cardiovascular: regular rate and rhythym, no murmur, rub, or gallop Respiratory: no respiratory distress, no rales or rhonchi, clear to auscultation Gastrointestinal: tenderness (LLQ), guarding, No rebound, No distension Skin: no rashes or abrasions, no fluctuance, no induration Neurologic: AAOx3, sensation intact bilaterally Psychiatric: interacting appropriately, not anxious, not encephalopathic, thought process linear ICD10 Worksheet Patient Problems: Problems Problem Status Onset Abdominal pain Acute Diarrhea Acute Diverticulitis Acute
--- NOTE | 2018-01-27 15:06 | ASMTLACE ---
SRINATH Length of stay for Answers: 1 day current admission Comorbidities - select Answers: Any tumor (including all that apply lymphoma or leukemia) Other Notes: Recurrent diverticulitis; HLD # of Emergency department Answers: 0 visits in the last 6 months Social determinants Answers: Mental health diagnosis (anxiety, depression, pers onality disorders, etc.) Score: 7 Date Signed: 01/27/2018 03:05 PM Electronically Signed By:Rosario Amor RN
--- NOTE | 2018-01-27 15:14 | ASMTCMCOM ---
CM Note CM Note Notes: Patient wishes to transfer to [place] to [facility]. Emtala filled out. Dr. Trent spoke with Dr. Sanchez who is accepting. Imaging on disc. Awaiting bed assignment RN to call [phone]. Will arrange for [facility] to transport. CM available should other needs arise. Plan: Transfer to [place] per patient choice, Date Signed: 01/27/2018 03:13 PM Electronically Signed By:Rosario Amor RN
--- NOTE | 2018-01-27 15:23 | GDS ---
DISCHARGE DIAGNOSES: 1. Left lower quadrant pain of unclear etiology. 2. Diarrhea. 3. Reported fever, unconfirmed. 4. Recently diagnosed chronic lymphocytic leukemia. 5. Bipolar. 6. Migraine. 7. Hyperlipidemia. HISTORY: The patient is a 62-year-old female who was admitted here to [facility] in June where she had a CT scan confirm diverticulitis. She received IV antibiotics, was transitioned to or al antibiotics and discharged home. Since that time, she has had recurrent episodes of diverticuliti s managed as an outpatient without repeat imaging, just multiple courses of oral Augmentin. She re-p resented to the emergency room on January 25 when she had worsening abdominal pain, prompting CT s can and hospital admission. Initial CT report was of a submucosal abscess in the proximal sigmoid co jerrod. She was admitted with a presumed diagnosis of diverticulitis, with associated abscess and surgi keanu consultation. She has been treated with IV Invanz. She has had persistent severe pain in the left lower quadrant throughout her hospitalization here. I nfectious Disease was consulted to review CAT scans and see whether percutaneous drainage of this abs cess might be feasible. Dr. Pepe reviewed her current CAT scan and compared it to her CAT scan in [place] r[place]. What was initially read as a submucosal abscess, when looking at old CAT scans, it is actually an ovarian cyst that was pre-existing and is unchanged. There is actually minimal inflammation, just extensive diverticulosis, and once this abscess has been removed from the picture I am not even sure she has acute diverticulitis. She definitely does not have any emergent surgical needs at this time . The patient and her family have a pre-existing relationship with a physician at [facility] and are requesting inpatient transfer for a 2nd surgical opinion. She is being transferred to [facility] under the care of . Her C. difficile was negative. She reports fever but we did not document any fever during her hospit alization here. She was recently diagnosed with CLL but she has not yet seen Heme-Onc as an outpatie nt. Further workup and determination of cause of left lower quadrant pain to be determined at [facility]. I do believe she is stable to transfer. TRANSFER DISCHARGE MEDICATIONS: Please see computer record for full detailed list. New Medications: I will continue IV Invanz 1 g IV daily for now with further continuation, necessity to be determined by [facility]. All of her other medications will continue as they were prior to admission. Greater than 30 minutes' time was spent arranging this discharge. Patient seen and examined by me on day of discharge. /[id number]/MODL
[2018-01-27] MEDS: ERTAPENEM 1 GM in NS 100 ML IV SCH (17:12)
[2018-01-28] MEDS ORDERED: ENOXAPARIN 40 MG/0.4 ML SYR SC SCH (09:00)
== END 2018-01-27 17:35 | disposition short-term general hospital (02) | DRG 392 ==
LOC: FIMAGING 12:50 → F1N 16:45 → OBSVTOIN 16:58 → EDSTATUS 18:00
PROVIDERS: ADMIT Surgery; ATTEND Internal Medicine
DX: R10.32 Left lower quadrant pain (principal); K57.30 Diverticulosis of large intestine without perforation or abscess without bleeding; N83.202 Unspecified ovarian cyst, left side; R19.7 Diarrhea, unspecified; C91.10 Chronic lymphocytic leukemia of B-cell type not having achieved remission; F31.9 Bipolar disorder, unspecified; E78.5 Hyperlipidemia, unspecified; G43.909 Migraine, unspecified, not intractable, without status migrainosus; G47.30 Sleep apnea, unspecified; E66.9 Obesity, unspecified; Z68.34 Body mass index [BMI] 34.0-34.9, adult; Z79.2 Long term (current) use of antibiotics; Z87.19 Personal history of other diseases of the digestive system; Z82.49 Family history of ischemic heart disease and other diseases of the circulatory system; Z96.653 Presence of artificial knee joint, bilateral
CPT/HCPCS: J1170; J1335; J2060; J2405; J2550; Q9967